=== PATIENT | male | born 2000 | race American Indian/Alaskan Native ===

== ENCOUNTER 2019-05-28 01:35 | Emergency (ER) | payer SELFPAY ==
[2019-05-28] MEDS ORDERED: NACL 0.9% 1000 ML 1,000 ML IV ONE (01:50)
[2019-05-28] MEDS ORDERED: ZOFRAN IV ONE (01:52)
[2019-05-28] MEDS ORDERED: ceFAZolin 2 GM in NACL 0.9% 100 ML IV ONE (01:52)
[2019-05-28] MEDS ORDERED: SUBLIMAZE IV ONE ×2 (01:52→06:43)
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
[2019-05-28 02:13] LABS: Basophils # (Auto) 0.1 K/mm3 (0.0-0.1); Basophils % (Auto) 0.9 % (0.0-1.8); Eosinophils # (Auto) 0.4 K/mm3 (0.0-0.4); Eosinophils % (Auto) 4.5 % (0.0-4.3); Hematocrit 39.9 % (35.5-45.6); Hemoglobin 13.7 gm/dl (11.8-15.2); Lymphocytes # (Auto) 3.5 K/mm3 (1.2-5.4); Lymphocytes % (Auto) 43.6 % (13.4-35.0); Mean Corpuscular HGB Conc 34 % (32-34); Mean Corpuscular Volume 95 fl (84-94); Monocytes # (Auto) 0.8 K/mm3 (0.0-0.8); Platelet Count 210 K/mm3 (140-440); Red Blood Count 4.21 M/mm3 (3.65-5.03); Red Cell Distribution Width 12.1 % (13.2-15.2)
[2019-05-28 02:21] LABS: Partial Thromboplastin Time 28.4 Sec. (24.2-36.6)
[2019-05-28 02:31] LABS: BUN/Creatinine Ratio 16; Blood Urea Nitrogen 13 mg/dL (9-20); Calcium 8.9 mg/dL (8.4-10.2); Hemolysis Index 27
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
[2019-05-28] MEDS ORDERED: SUBLIMAZE ONE (06:14)
[2019-05-28 07:32] VITALS: BP 122/74
== END 2019-05-28 07:31 | disposition home or self-care (01) ==
LOC: ED 01:35
DX: S71.132A Puncture wound without foreign body, left thigh, initial encounter (principal); W34.09XA Accidental discharge from other specified firearms, initial encounter; Y93.89 Activity, other specified; Y92.89 Other specified places as the place of occurrence of the external cause; Y99.8 Other external cause status
CPT/HCPCS: 36415; 73552; 73706; 80048; 85025; 85610; 85730; 86850; 86900; 86901; 96365; 96375; 96376; 99284; J0690; J2405; J3010; J7030; Q9967